=== PATIENT | male | born 1950 | race Caucasian/White ===

== ENCOUNTER 2017-05-19 13:25 | Emergency (ER) | payer OTHER ==
[2017-05-19 13:33] VITALS: RESP 16
--- NOTE | 2017-05-19 13:40 | CPEKG ---
Heart Rate: 61 RR Interval: 984 P-R Interval: 164 QRSD Interval: 108 QT Interval: 448 QTC Interval: 452 P [place]: 67 QRS [place]: 57 T Wave [place]: 66 EKG Severity - ABNORMAL ECG - EKG Impression: SINUS RHYTHM EKG Impression: INCOMPLETE RIGHT BUNDLE BRANCH BLOCK Electronically Signed By: Tino Gordon 19-May-2017 13:56:56
[2017-05-19] MEDS ORDERED: ASPIRIN 81 MG CHEWABLE TAB PO ONE (13:52)
--- NOTE | 2017-05-19 13:55 | EDPHY ---
H & P Time Seen by Provider: 05/19/17 13:34 HPI/ROS: CHIEF COMPLAINT: Chest tightness HISTORY OF PRESENT ILLNESS: This 67-year-old man presents with chest tightness which started today at 8:00 a.m. when he was making breakfast. It is just left of center not better worse with deep breathing or exertion. Does not radiate. Not associated with nausea diaphoresis or syncope. He did do work in the yard yesterday including landscaping with a sledgehammer and went for a run, but the symptoms do not change with movement of his arms or his torso. Symptoms mild currently. REVIEW OF SYSTEMS: Eye: no change in vision ENT: no sore throat Cardiac: HPI Pulmonary: no cough or SOB Abdomen: no vomiting, diarrhea, abdominal pain Musculoskeletal: no back pain or leg swelling Skin: no rash Neuro: no headache Constitutional: no fever : no urinary symptoms A comprehensive 10 point review of systems is otherwise negative aside from elements mentioned in the history of present illness. PAST MEDICAL HISTORY: Tonsillectomy, hernia repair, sinus surgery. Negative for diabetes hypertension or hypercholesterolemia. Social history: Nonsmoker, parents had myocardial infarction in their late 70s and 80s. No other family history of coronary disease. Does have a lot of recent travel including flights to [place] and [place] within the last month. General Appearance: Alert and conversant, cooperative. Eyes: No scleral icterus. ENT, Mouth: Normal mucous membranes. Respiratory: Normal respiratory effort, breath sounds equal, lungs are clear to auscultation. Speaks in full sentences. Cardiovascular: Regular rate and rhythm. Gastrointestinal: Abdomen is soft and non tender. Neurological: Alert and oriented x3. Normally conversant. Face symmetric, normal movement and sensation in all extremities. Skin: Patient has a few patches of slight redness on the anterior chest extending to the left axilla and across the midline to the right nipple. Largest 1 is 1 x 2 cm. Does not appear vesicular or purpuric. Musculoskeletal: No peripheral edema and no joint swelling. No calf tenderness. Psychiatric: Not agitated. Emergency Department course/MDM: EKG shows right bundle branch block which is old for the patient. Of note he said he took his blood pressure and heart rate this morning and was slightly low at 120/77 but the most remarkable thing was his heart rate was 66. A normal resting pulse for him is around 50 and yesterday when he took it was 46. Low to intermediate probability pretest for pulmonary embolism. 1420: D-dimer 3.2, CTA discussed and consented. Normal CTA per John Berger at 2:55 p.m., no pulmonary embolism. 1515: Results discussed, options for risk stratification discussed. Patient would prefer inpatient serial troponins and stress testing prior to discharge. Seen by Dr. Raoul Kearney from hospitalist service in the emergency department who assumed care, discharged the patient. Smoking Status: Never smoked Constitutional: Initial Vital Signs Temperature (C) 36.5 C 05/19/17 13:30 Heart Rate 65 05/19/17 13:30 Respiratory Rate 16 05/19/17 13:30 Blood Pressure 161/106 H 05/19/17 13:30 O2 Sat (%) 98 05/19/17 13:30 O2 Delivery Mode Room Air Allergies/Adverse Reactions: No Known Allergies Allergy (Verified 10/12/12 20:03) Home Medications: Medication Instructions Recorded Aspirin [Aspirin 81mg (*)] 81 mg PO DAILY 05/19/17 Cholecalciferol Vit D3 [Vitamin D3 5,000 units PO DAILY 05/19/17 (*)] Herbals/Supplements -Info Only 1 ea PO DAILY 05/19/17 valACYclovir [Valtrex (*)] 1,000 mg PO Q8 #42 tab 05/19/17 Medical Decision Making - Diagnostics EKG Interpretation: 12-lead EKG interpreted by me; official reading is in trace master. My interpretation is sinus rhythm with right bundle branch block, no acute dynamic ischemic changes. Differential Diagnosis: Differential diagnosis considered for chest pain including but not limited to myocardial ischemia, aortic dissection, pericarditis, pulmonary embolus, chest wall pain, pleural inflammation and pulmonary infectious causes. Consult/Admit Bed Type: [place] [id number] - Data Points Laboratory Results: Laboratory Results 05/19/17 13:46 05/19/17 13:46 Medications Given: Discontinued Medications Aspirin (Aspirin) 324 mg PO EDNOW ONE Stop: 05/19/17 13:53 Last Admin: 05/19/17 13:57 Dose: 324 mg Departure - Departure Disposition: Home, Routine, Self-Care Clinical Impression: Chest pain Qualifiers: Chest pain type: unspecified Qualified Code(s): R07.9 - Chest pain, unspecified Condition: Good Instructions: Shingles (ED) Additional Instructions: Please follow up per MD Kearney's request. Referrals: Daniel Lopez MD [Primary Care Provider] - As per Instructions Prescriptions: valACYclovir [Valtrex (*)] 1,000 mg PO Q8 #42 tab
[2017-05-19 13:56] LABS: % IMMATURE GRANULYOCYTES 0.9 % (0.0-1.1); ABSOLUTE IMMATURE GRANULOCYTES 0.09 10^3/uL (0.00-0.10); ADD DIFF? NO; ADD MORPH? NO; ADD SCAN? NO; ATYPICAL LYMPHOCYTE FLAG 0 (0-99); FRAGMENT RBC FLAG 0 (0-99); HEMOGLOBIN 17.6 g/dL (13.7-17.5); LEFT SHIFT FLG 0 (0-99); LIPEMIA HEMOLYSIS FLAG 90 (0-99); MEAN CELL HEMOGLOBIN 34.2 pg (27.9-34.1); MEAN CELL HEMOGLOBIN CONCENTR. 35.9 g/dL (32.4-36.7); MEAN CELL VOLUME 95.1 fL (81.5-99.8); MEAN PLATELET VOLUME 11.1 fL (8.7-11.7); PLATELET CLUMPS FLAG 20 (0-99); PLATELET COUNT 166 10^3/uL (150-400); RED BLOOD CELL COUNT 5.15 10^6/uL (4.40-6.38)
[2017-05-19 14:07] LABS: ANION GAP 13 mEq/L (8-16); CALCIUM 9.7 mg/dL (8.5-10.4); CARBON DIOXIDE 21 mEq/l (22-31); CHLORIDE 107 mEq/L (97-110); CREATININE 0.9 mg/dL (0.7-1.3); GLOMERULAR FILTRATION RATE > 60; GLUCOSE 85 mg/dL (70-100); POTASSIUM 4.5 mEq/L (3.5-5.2); SODIUM 141 mEq/L (134-144)
[2017-05-19 14:19] LABS: TROPONIN I < 0.012 ng/mL (0-0.034)
[2017-05-19] MEDS ORDERED: IOPAMIDOL (ISOVUE 370) 100 ML BTL IV ONE (14:25)
[2017-05-19 15:38] VITALS: PULSE 63; TEMP 98.1
[2017-05-19 16:53] VITALS: BP 116/85; O2SAT 93
--- NOTE | 2017-05-19 17:01 | GCON ---
[f rep st] CONSULTATION DATE OF CONSULTATION: 05/19/2017 REFERRING PHYSICIAN: Tino Gordon MD REASON FOR CONSULTATION: Evaluation of chest discomfort. HISTORY OF PRESENT ILLNESS: This is a 67-year-old male with no cardiac risk factors other than his age and sex, who presented to the emergency department with chest pain that he awoke with this morni ng. It was described as a generalized left-sided pain around his axilla and goes to his sternum. D escribed as a 3/10 dull ache. He denies any exacerbating or alleviating factors. He denies any milind nge with exertion or walking stairs. He was doing some "extreme gardening" yesterday and thinks he may have pulled a muscle in his chest. He has had chickenpox before. PAST MEDICAL HISTORY: Right bundle branch block. PAST SURGICAL HISTORY: Sinus surgery, hernia repair. MEDICATIONS: At home, aspirin, vitamin D, and herbal supplements. ALLERGIES: No known drug allergies. SOCIAL HISTORY: He drinks about 3 bottles of wine per week. He denies any tobacco use. FAMILY HISTORY: Significant for heart disease in his father who of a heart attack at age 75, a nd his mother who had a heart attack at age 88. REVIEW OF SYSTEMS: Comprehensive 10-point review of systems was done and is negative, except for as mentioned in the HPI. PHYSICAL EXAMINATION: VITAL SIGNS: Blood pressure 133/81, pulse of 63, respiratory rate 16, O2 sat uration 95% on room air, temperature afebrile. GENERAL: No acute distress. HEART: S1, S2. No mu rmurs, rubs, clicks, gallops, or JVD. No lower extremity edema. CHEST: There is an erythematous m acular papular rash starting in his left axilla and extending along the T5 dermatome. There are no real vesicles. He just noticed this rash today. ABDOMEN: Soft, nontender, nondistended. No guard ing or rebound tenderness. Normoactive bowel sounds. PULMONARY: Lungs are clear. No wheezes, ral es, or rhonchi. Normal respiratory effort. EXTREMITIES: No clubbing or cyanosis. NEURO: Cranial nerves 2-12 grossly intact. No focal motor or sensory deficits. SKIN: See above. LABORATORY DATA: WBC is 10.29, hemoglobin 17.6, hematocrit 49, platelets 166. D-dimer was elevated at 3.22. Sodium 141, potassium 4.5, chloride 107, CO2 of 21, BUN 17, creatinine 0.9, glucose 87. Troponin was less than 0.012, drawn at 1:[address] was done, given his positive D-dimer, that was negative for PE. EKG, which I visualized and personally interpreted, shows sinus rhythm, rate 61 beats per minute. T here is an incomplete right bundle branch block. There is no ST-segment elevation or depression. T here are no T-waves. ASSESSMENT: This is a 67-year-old male presenting with: Dull, generalized left-sided chest pain that began this morning upon waking from bed, which sounds t o be atypical in nature. I am very suspicious about this new dermatomal rash he has on his left [address] and suspect that he may have an early case of shingles which could be causing his pain. PLAN: I discussed options with the patient, which included observation care for further troponins, versus close outpatient followup and initiating treatment for shingles with Valtrex 1 g p.o. 3 times daily for a week. After careful consideration, the patient thinks he would prefer to go home, whabe h I think is reasonable. He was urged to seek followup with his primary care provider on Saturday and was also recommended to return to the emergency department if his chest pain returns or worsens. A t the time of this dictation, his chest pain is resolved. /[id number]/MODL
[2017-05-19] MEDS ORDERED: valACYclovir 500 MG TAB PO SCH (22:00)
== END 2017-05-19 16:57 | disposition home or self-care (01) ==
LOC: UNDOADMOB 15:29
DX: R07.9 Chest pain, unspecified (principal); Z79.82 Long term (current) use of aspirin
CPT/HCPCS: Q9967

== ENCOUNTER 2018-01-19 11:05 | Emergency (ER) | payer OTHER ==
[2018-01-19 11:14] VITALS: TEMP 99.1
[2018-01-19 11:43] LABS: PLATELET COUNT 168 10^3/uL (150-400)
--- NOTE | 2018-01-19 12:41 | EDPHY ---
H & P Time Seen by Provider: 01/19/18 12:40 HPI/ROS: Chief complaint. Abdominal pain HPI. Patient is a 67-year-old male with periumbilical pain for 2 days. Apparently 3 days ago he had some type of illness and he was aching all over and maybe had a little bit of fever. However that has resolved and he has had 2 days of periumbilical pain that he describes as dull and without radiation. It has been severe enough that he has had a hard time sleeping. It seems to be better with eating. Slight diarrhea and nausea but no vomiting. No urinary symptoms. No similar symptoms previously no previous abdominal surgery ROS Constitutional. no fever/chills, no weakness Eyes. no problems with vision ENT. no sore throat, no nasal drainage Cardiovascular. no chest pain Respiratory. no shortness of breath, no cough Abdominal. Mid abdominal pain with some nausea and slight diarrhea . no problems urinating MS. no calf pain/swelling, no neck/back pain, no joint pain Skin. no rash Lymph. no swollen glands Neuro. no headache, no dizziness, no difficulty walking or with speech Past Medical/Surgical History: Inguinal hernia repair, tonsillectomy Social History: , nonsmoker, no alcohol Smoking Status: Never smoked Physical Exam: General Appearance: Alert pleasant well-developed male mild distress vital signs are stable Eyes: Pupils equal and round no pallor or injection. ENT, Mouth: Mucous membranes are moist. Respiratory: There are no retractions, lungs are clear to auscultation. Cardiovascular: Regular rate and rhythm. Gastrointestinal: Abdomen is soft with periumbilical tenderness and prominent aortic pulsation. Otherwise no masses. Normal bowel sounds Neurological: Awake and alert, sensory and motor exams grossly normal. Skin: Warm and dry, no rashes. Musculoskeletal: Neck is supple nontender. Extremities symmetrical, full range of motion. Psychiatric: Patient is oriented X 3, there is no agitation. Constitutional: Initial Vital Signs Temperature (C) 37.3 C 01/19/18 11:10 Heart Rate 50 L 01/19/18 11:10 Respiratory Rate 16 01/19/18 11:10 Blood Pressure 113/81 H 01/19/18 11:10 O2 Sat (%) 97 01/19/18 11:10 O2 Delivery Mode Room Air Allergies/Adverse Reactions: No Known Allergies Allergy (Verified 10/12/12 20:03) Home Medications: Medication Instructions Recorded Aspirin [Aspirin 81mg (*)] 81 mg PO DAILY 05/19/17 Cholecalciferol Vit D3 [Vitamin D3 5,000 units PO DAILY 05/19/17 (*)] Medical Decision Making - Diagnostics Imaging Results: CT abdomen pelvis reviewed by me and discussed with Dr. Mojica shows mild constipation trace free fluid in the pelvis. Normal caliber aorta. Normal appendix Procedures: IV normal saline ED Course/Re-evaluation: Re-evaluation and patient's lab work is normal. The patient, his , and I discussed laboratory evaluation and recommendation for further imaging as part of the workup. They expressed understanding and agreement. CT abdomen and pelvis with IV contrast is ordered 2:30 p.m. Patient and I discussed imaging study results, treatment plan including criteria for return importance of follow-up further evaluation. They expressed understanding and agreement Differential Diagnosis: I considered aortic aneurysm, dissection, urinary tract infection, kidney stone , diverticulitis, appendicitis - Data Points Laboratory Results: Laboratory Results 01/19/18 11:30 01/19/18 11:30 01/19/18 01/19/18 01/19/18 11:30 11:30 10:40 WBC 4.61 10^3/uL 10^3/uL (3.80-9.50) RBC 4.50 10^6/uL 10^6/uL (4.40-6.38) Hgb 15.9 g/dL g/dL (13.7-17.5) Hct 45.3 % % (40.0-51.0) MCV 100.7 fL H fL (81.5-99.8) MCH 35.3 pg H pg (27.9-34.1) MCHC 35.1 g/dL g/dL (32.4-36.7) RDW 12.8 % % (11.5-15.2) Plt Count 168 10^3/uL 10^3/uL (150-400) MPV 10.4 fL fL (8.7-11.7) Neut % (Auto) 51.4 % % (39.3-74.2) Lymph % (Auto) 26.2 % % (15.0-45.0) [place] % (Auto) 17.4 % H % (4.5-13.0) Eos % (Auto) 3.7 % % (0.6-7.6) Baso % (Auto) 0.9 % % (0.3-1.7) Nucleat RBC Rel Count 0.0 % % (0.0-0.2) Absolute Neuts (auto) 2.37 10^3/uL 10^3/uL (1.70-6.50) Absolute Lymphs (auto) 1.21 10^3/uL 10^3/uL (1.00-3.00) Absolute Monos (auto) 0.80 10^3/uL 10^3/uL (0.30-0.80) Absolute Eos (auto) 0.17 10^3/uL 10^3/uL (0.03-0.40) Absolute Basos (auto) 0.04 10^3/uL 10^3/uL (0.02-0.10) Absolute Nucleated RBC 0.00 10^3/uL 10^3/uL (0-0.01) Immature Gran % 0.4 % % (0.0-1.1) Immature Gran # 0.02 10^3/uL 10^3/uL (0.00-0.10) Sodium 140 mEq/L mEq/L (135-145) Potassium 4.1 mEq/L mEq/L (3.5-5.2) Chloride 102 mEq/L mEq/L (97-110) Carbon Dioxide 29 mEq/l mEq/l (22-31) Anion Gap 9 mEq/L mEq/L (8-16) BUN 10 mg/dL mg/dL (7-23) Creatinine 0.8 mg/dL mg/dL (0.7-1.3) Estimated GFR > 60 Glucose 85 mg/dL mg/dL (70-100) Calcium 8.9 mg/dL mg/dL (8.5-10.4) Total Bilirubin 0.9 mg/dL mg/dL (0.1-1.4) Conjugated Bilirubin 0.4 mg/dL mg/dL (0.0-0.5) Unconjugated Bilirubin 0.5 mg/dL mg/dL (0.0-1.1) AST 45 IU/L IU/L (17-59) ALT 66 IU/L IU/L (21-72) Alkaline Phosphatase 76 IU/L IU/L (38-126) Total Protein 6.3 g/dL g/dL (6.3-8.2) Albumin 3.7 g/dL g/dL (3.5-5.0) Lipase 71 IU/L IU/L (23-300) Urine Color PALE YELLOW Urine Appearance CLEAR Urine pH 6.0 (5.0-7.5) Ur Specific [place] 1.003 (1.002-1.030) Urine Protein NEGATIVE (NEGATIVE) Urine Ketones NEGATIVE (NEGATIVE) Urine Blood NEGATIVE (NEGATIVE) Urine Nitrate NEGATIVE (NEGATIVE) Urine Bilirubin NEGATIVE (NEGATIVE) Urine Urobilinogen NEGATIVE EU EU (0.2-1.0) Ur Leukocyte Esterase NEGATIVE (NEGATIVE) Urine Glucose NEGATIVE (NEGATIVE) Medications Given: Discontinued Medications Sodium Chloride (Ns) 1,000 mls @ 0 mls/hr IV EDNOW ONE; Wide Open PRN Reason: Protocol Stop: 01/19/18 13:00 Last Admin: 01/19/18 13:04 Dose: 1,000 mls Departure - Departure Disposition: Home, Routine, Self-Care Clinical Impression: Abdominal pain Condition: Good Instructions: Constipation (ED) Additional Instructions: Drink plenty of fluids and stay hydrated. Consider fruit and prune juice. Activity as tolerated. Return for worsening pain, fever, vomiting. Recheck in 2 days if not improving Referrals: Daniel Lopez MD [Primary Care Provider] - 2-3 days, if not improved
[2018-01-19] MEDS ORDERED: NS 1,000 ML IV ONE (12:59)
[2018-01-19] MEDS ORDERED: IOPAMIDOL (ISOVUE-300) 100 ML BTL ONE (13:06)
[2018-01-19 14:26] VITALS: BP 125/68; PULSE 46; RESP 14; O2SAT 98
== END 2018-01-19 14:43 | disposition home or self-care (01) ==
DX: R10.33 Periumbilical pain (principal); E86.9 Volume depletion, unspecified; Z79.82 Long term (current) use of aspirin
CPT/HCPCS: Q9967

== ENCOUNTER 2018-04-04 06:59 | Emergency (ER) | payer OTHER ==
[2018-04-04] MEDS ORDERED: NS 1,000 ML IV ONE (07:09)
--- NOTE | 2018-04-04 07:13 | EDPHY ---
HPI/HX/ROS/PE/MDM Narrative: CHIEF COMPLAINT: Left side neck and back pain HPI: The patient is a 68 y/o male complaining of left-sided neck, scapular, and back pain sudden onset this morning upon waking up. Turning his head to the left causes the pain to worsen and moving his head down mildly alleviates the pain. Taking Aleve had no effect on his pain. Around 20 years ago he tweaked the muscles around his left scapula but had no follow up care. Denies numbness or tingling in extremities. Denies lifting heavy objects recently. Denies history of neck or back surgery. Denies fever, chest pain, shortness of breath, urinary or bowel complaints, paresthesias. This patient is normally healthy and runs ultra marathons, although he did recently have a hamstring strain. He denies any chest pain or exercise intolerance on recent runs. REVIEW OF SYSTEMS: Aside from elements discussed in the HPI, a comprehensive 10-point review of systems was reviewed and is negative. PMH: Inguinal hernia repair, tonsillectomy SOCIAL HISTORY: at bedside, employed as a personal computer specialist, lives in [place] PHYSICAL EXAM: General: Patient is alert, in no acute distress. ENT: Eyes are normal to inspection. ENT inspection normal. Neck: Normal inspection. Limited range of motion secondary to pain. Turning head to the left reproduces left scapular pain. No midline tenderness. Respiratory: No respiratory distress. Breath sounds normal bilaterally. Cardiovascular: Regular rate and rhythm. Strong peripheral pulses. Normal cap refill. Abdomen: The abdomen is nontender to palpation. There are no peritoneal signs. There are normal bowel sounds. Back: Normal to inspection. No tenderness to palpation. Skin: Normal color. No rash. Warm and dry. Extremities: Normal appearance. Full range of motion. Neuro: Oriented x3. Normal motor function. Normal sensory function. No pronator drift. Neuro exam of hands bilaterally intact. ED Course: 0750: I reviewed patient's cervical x-ray; radiologist reading still pending 0808: Reassessed patient and discussed imaging findings. I have advised him to follow up with a neurosurgeon in one week. 0835: Reassessed patient and discussed radiologist findings on cervical x-ray. He is still in pain, 30mg IV Toradol given prior to discharge. I have prescribed him a Medrol Dose Anand, Flexeril, and Percocet. Return precautions provided; patient is comfortable with this plan. MDM: This patient presents with signs and symptoms of cervical radiculopathy. His symptoms are clearly reproducible with neck movement and there is no history of trauma. I considered cardiovascular disease such as ACS, TAD, but this seems extremely unlikely as pain is reproducible by neck motion and patient has had no chest pain with long exertion. There are no neuro deficits or history of trauma to suggest neck vessel dissection. Patient will be discharged home with an rx for medrol dose-anand, muscle relaxant and pain medication. He will need urgent NSG folllow-up and was given a referral. We discussed strict return precautions. - Data Points Imaging Results: Imaging Impressions Cervical Spine X-Ray 04/04/18 07:23 Impression: Cervical spine negative for acute abnormality with degenerative changes noted. If symptoms persist, MRI could be considered for further evaluation. Imaging: I viewed and interpreted images myself Medications Given: Discontinued Medications Sodium Chloride (Ns) 1,000 mls @ 0 mls/hr IV ONCE ONE PRN Reason: [place] Stop: 04/04/18 07:10 Last Admin: 04/04/18 07:33 Dose: Not Given Ketorolac Tromethamine (Toradol) 30 mg IVP EDNOW ONE Stop: 04/04/18 08:38 Last Admin: 04/04/18 08:46 Dose: 30 mg General Time Seen by Provider: 04/04/18 07:11 Initial Vital Signs: Initial Vital Signs Temperature (C) 36.5 C 04/04/18 07:04 Heart Rate 54 L 04/04/18 07:04 Respiratory Rate 16 04/04/18 07:04 Blood Pressure 133/75 H 04/04/18 07:04 O2 Sat (%) 98 04/04/18 07:04 O2 Delivery Mode Room Air Allergies/Adverse Reactions: No Known Allergies Allergy (Verified 04/04/18 07:03) Home Medications: Medication Instructions Recorded Aspirin [Aspirin 81mg (*)] 81 mg PO DAILY 05/19/17 Cholecalciferol Vit D3 [Vitamin D3 5,000 units PO DAILY 05/19/17 (*)] Cyclobenzaprine [Flexeril] 10 mg PO TID #15 tab 04/04/18 methylPREDNISolone [Medrol Dose 1 each PO AD #1 ea 04/04/18 Anand] oxyCODONE/APAP 5/325 [Percocet 5 - 10 mg PO Q4-6PRN PRN #14 tab 04/04/18 5/325] Departure - Departure Disposition: Home, Routine, Self-Care Clinical Impression: Cervical radiculopathy Condition: Good Instructions: Cervical Radiculopathy (ED), Neck Pain (ED) Additional Instructions: Take the Medrol Dose Anand as prescribed. Take Flexeril as prescribed. Take Percocet as needed for severe pain. Followup with a instrumentation specialist within one week, you have been referred to Dr. Pierre. Return to the emergency department for severe pain, fever, numbness, difficulty walking, change in location or nature of pain or other concerns. Referrals: Daniel Lopez MD [Primary Care Provider] - As per Instructions Madeline Pierre DO [Doctor of Osteopathy] - As per Instructions Stand Alone Forms: Work Excuse Prescriptions: Cyclobenzaprine [Flexeril] 10 mg PO TID #15 tab methylPREDNISolone [Medrol Dose Anand] 1 each PO AD #1 ea oxyCODONE/APAP 5/325 [Percocet 5/325] 5 - 10 mg PO Q4-6PRN PRN #14 tab PRN Reason: For Pain Report Scribed for: Lyndon Triplett Report Scribed by: Aleta Townsend Date of Report: 04/04/18 Time of Report: 07:13 Physician Review and Approval Statement: Portions of this note were transcribed by an ED scribe. I personally performed the history, physical exam, and medical decision making; and confirm the accuracy of the information in the transcribed note.
[2018-04-04] MEDS ORDERED: KETOROLAC 30 MG/1 ML SDV IVP ONE (08:37)
[2018-04-04 09:03] VITALS: BP 140/70
== END 2018-04-04 09:06 | disposition home or self-care (01) ==
DX: M54.12 Radiculopathy, cervical region (principal); Z79.82 Long term (current) use of aspirin
CPT/HCPCS: 96374; J1885